=== PATIENT | female | born 1995 | race African-American/Black ===

== ENCOUNTER 2025-05-27 20:40 | Emergency (ER) | payer OTHER ==
[~2025-05-27] VITALS: Ht 172.7 cm; Wt 83.9 kg
[2025-05-27 22:08] VITALS: BP 132/80; TEMP 98.8; O2SAT 97
== END 2025-05-27 22:08 | disposition home or self-care (01) ==
LOC: ER 20:43
DX: M25.572 Pain in left ankle and joints of left foot (principal); Z91.0110 Allergy to milk products, unspecified; Z91.0120 Allergy to eggs, unspecified; Z91.018 Allergy to other foods; Z91.040 Latex allergy status; X50.1XXA Overexertion from prolonged static or awkward postures, initial encounter; Y93.89 Activity, other specified; Y92.89 Other specified places as the place of occurrence of the external cause; Y99.8 Other external cause status
CPT/HCPCS: 73610-TC